=== PATIENT | female | born 1985 | race African-American/Black ===

== ENCOUNTER 2017-01-28 22:47 | Emergency (ER) | payer OTHER ==
[~2017-01-28 22:47] MED LIST: CLA10 PO; ESG PO; FLEXERIL10 MG PO; FLONS; LIO10 PO; MAC100 PO; ULT50 PO; [UNRECOGNIZED DRUG - REMARK]
[2017-01-28 23:35] LABS: BASOPHIL % 1.6 % (0-2); PLATELET COUNT 386 x10^3mcL (130-400); RED CELL DISTRIBUTION WIDTH 11.8 % (11.5-14.5)
[2017-01-28 23:58] LABS: CALCIUM 8.8 mg/dL (8.5-10.1); CARBON DIOXIDE 25.8 mmol/L (21-32); CREATININE SERUM 1.2 mg/dL (0.6-1.0); POTASSIUM SERUM 3.6 mmol/L (3.5-5.1)
[2017-01-29 00:06] LABS: ALBUMIN 3.6 g/dL (3.4-5.0); BILIRUBIN TOTAL 0.4 mg/dL (0.20-1.00); TOTAL PROTEIN, SERUM 7.3 g/dL (6.4-8.2)
[2017-01-29 00:43] VITALS: BP 134/90
== END 2017-01-29 00:43 | disposition home or self-care (01) ==
LOC: ED 22:47
PROVIDERS: Emergency Medicine
DX: J32.9 Chronic sinusitis, unspecified (principal); R10.30 Lower abdominal pain, unspecified; G89.29 Other chronic pain; Z90.710 Acquired absence of both cervix and uterus
CPT/HCPCS: 36415; J2270

== ENCOUNTER 2017-01-30 00:49 | Emergency (ER) | payer OTHER ==
[2017-01-30 03:06] VITALS: BP 118/77
== END 2017-01-30 03:06 | disposition home or self-care (01) ==
LOC: ED 00:49
DX: R51 Headache (principal); J01.90 Acute sinusitis, unspecified; G89.29 Other chronic pain; Z98.51 Tubal ligation status
CPT/HCPCS: J3010

== ENCOUNTER 2017-05-13 13:38 | Emergency (ER) | payer OTHER ==
[~2017-05-13] VITALS: Ht 157.5 cm; Wt 70.1 kg
[2017-05-13 14:28] VITALS: BP 117/83
== END 2017-05-13 14:28 | disposition home or self-care (01) ==
LOC: ED 13:38
DX: K13.0 Diseases of lips (principal)

== ENCOUNTER 2017-05-21 00:25 | Emergency (ER) | payer OTHER ==
[2017-05-21 04:37] VITALS: BP 119/70
== END 2017-05-21 04:37 | disposition home or self-care (01) ==
LOC: ED 00:25
DX: L03.311 Cellulitis of abdominal wall (principal); L03.114 Cellulitis of left upper limb; Z91.010 Allergy to peanuts; Z91.02 Food additives allergy status; Z90.711 Acquired absence of uterus with remaining cervical stump
CPT/HCPCS: J1885; Q0163

== ENCOUNTER 2017-08-16 10:16 | Emergency (ER) | payer OTHER ==
[~2017-08-16] VITALS: Ht 157.5 cm; Wt 6.8 kg
[2017-08-16 10:26] VITALS: Ht 157.5 cm; Wt 6.8 kg
[2017-08-16 13:07] LABS: BASOPHIL % 0.2 % (0-2); PLATELET COUNT 388 x10^3mcL (130-400); RED CELL DISTRIBUTION WIDTH 12.3 % (11.5-14.5)
[2017-08-16 13:11] LABS: CALCIUM 9.1 mg/dL (8.5-10.1); CARBON DIOXIDE 27.5 mmol/L (21-32); CHLORIDE SERUM 104 mmol/L (98-107); CREATININE SERUM 0.9 mg/dL (0.6-1.0); GFR1 > 60 mL/min; GLUCOSE SERUM 82 mg/dL (74-106); POTASSIUM SERUM 3.7 mmol/L (3.5-5.1); SODIUM SERUM 140 mmol/L (136-145)
[2017-08-16 13:16] LABS: ALBUMIN 3.8 g/dL (3.4-5.0); ALKALINE PHOSPHATASE 63 U/L (46-116); ALT/SGPT 16 U/L (14-59); AMYLASE 89 U/L (25-115); AST/SGOT 21 U/L (15-37); BILIRUBIN TOTAL 0.53 mg/dL (0.20-1.00); LIPASE 131 IU/L (73-393); TOTAL PROTEIN, SERUM 7.9 g/dL (6.4-8.2)
[2017-08-16 15:11] VITALS: BP 134/79
== END 2017-08-16 15:11 | disposition home or self-care (01) ==
LOC: ED 10:16
PROVIDERS: Specialist
DX: B34.9 Viral infection, unspecified (principal); G89.29 Other chronic pain; Z91.010 Allergy to peanuts; Z91.02 Food additives allergy status; Z88.8 Allergy status to other drugs, medicaments and biological substances
CPT/HCPCS: 86308; 87804; J1885; J7030; Q0092

== ENCOUNTER 2017-09-14 16:11 | Emergency (ER) | payer OTHER ==
[~2017-09-14] VITALS: Ht 157.5 cm; Wt 72.6 kg
[2017-09-14 16:35] VITALS: Ht 157.5 cm; Wt 72.6 kg
[2017-09-14 17:59] VITALS: BP 128/74
== END 2017-09-14 17:59 | disposition home or self-care (01) ==
LOC: ED 16:11
DX: J02.8 Acute pharyngitis due to other specified organisms (principal); M79.1 Myalgia
CPT/HCPCS: J1885

== ENCOUNTER 2017-11-27 17:42 | Emergency (ER) | payer OTHER ==
[~2017-11-27] VITALS: Ht 157.5 cm; Wt 72.6 kg
[2017-11-27 17:51] VITALS: Ht 157.5 cm; Wt 72.6 kg
[2017-11-27 21:29] VITALS: BP 110/66
[2017-11-28] MEDS ORDERED: XARELTO10 M1 PO (17:12)
[2017-11-28] MEDS ORDERED: BACLOFEN10 MG PO (17:13)
[2017-11-28] MEDS ORDERED: ACETAMINOPHEN &1 TA1 PO (17:15)
[2017-11-28] MEDS ORDERED: IBUPROFEN400 MG PO (17:16)
== END 2017-11-27 21:29 | disposition home or self-care (01) ==
LOC: ED 17:42
DX: S13.9XXA Sprain of joints and ligaments of unspecified parts of neck, initial encounter (principal); I82.409 Acute embolism and thrombosis of unspecified deep veins of unspecified lower extremity; I26.99 Other pulmonary embolism without acute cor pulmonale; Z91.018 Allergy to other foods; Z91.010 Allergy to peanuts; Z90.710 Acquired absence of both cervix and uterus; V49.9XXA Car occupant (driver) (passenger) injured in unspecified traffic accident, initial encounter; Y93.73 Activity, racquet and hand sports; Y92.89 Other specified places as the place of occurrence of the external cause; Y99.8 Other external cause status
CPT/HCPCS: J1885; J2405; J3010

== ENCOUNTER 2017-11-28 14:55 | Emergency (ER) | payer OTHER ==
[~2017-11-28] VITALS: Ht 157.5 cm; Wt 72.6 kg
[2017-11-28 14:59] VITALS: Ht 157.5 cm; Wt 72.6 kg
[2017-11-28 16:35] LABS: CALCIUM 8.7 mg/dL (8.5-10.1); CARBON DIOXIDE 30.3 mmol/L (21-32); CHLORIDE SERUM 103 mmol/L (98-107); CREATININE SERUM 0.9 mg/dL (0.6-1.0); GFR1 > 60 mL/min; GLUCOSE SERUM 125 mg/dL (74-106); POTASSIUM SERUM 3.9 mmol/L (3.5-5.1); SODIUM SERUM 139 mmol/L (136-145)
[2017-11-28] MEDS ORDERED: XARELTO10 M1 PO (17:12)
[2017-11-28] MEDS ORDERED: BACLOFEN10 MG PO (17:13)
[2017-11-28] MEDS ORDERED: ACETAMINOPHEN &1 TA1 PO (17:15)
[2017-11-28] MEDS ORDERED: IBUPROFEN400 MG PO (17:16)
[2017-11-28 17:28] LABS: BASOPHIL % 0.3 % (0-2); PLATELET COUNT 352 x10^3mcL (130-400); RED CELL DISTRIBUTION WIDTH 12.3 % (11.5-14.5)
[2017-11-28 19:15] VITALS: BP 111/80
== END 2017-11-28 19:00 | disposition short-term general hospital (02) ==
LOC: ED 14:55
PROVIDERS: Emergency Medicine
DX: S16.1XXA Strain of muscle, fascia and tendon at neck level, initial encounter (principal); Z91.010 Allergy to peanuts; Z91.018 Allergy to other foods; V43.92XA Unspecified car occupant injured in collision with other type car in traffic accident, initial encounter; Y93.89 Activity, other specified; Y92.89 Other specified places as the place of occurrence of the external cause; Y99.8 Other external cause status
CPT/HCPCS: J2270; J2405; J7030; Q9967

== ENCOUNTER 2018-04-02 08:28 | Emergency (ER) | payer OTHER ==
[~2018-04-02] VITALS: Ht 157.5 cm; Wt 74.4 kg
[~2018-04-02 08:28] MED LIST changes: +ACETAMINOPHEN &1 TA1 PO; +BACLOFEN10 MG PO; +IBUPROFEN400 MG PO; +XARELTO10 M1 PO
[2018-04-02 08:46] VITALS: BP 139/67; Ht 157.5 cm; Wt 74.4 kg
== END 2018-04-02 12:15 | disposition home or self-care (01) ==
LOC: ED 08:28
DX: M54.2 Cervicalgia (principal); M54.9 Dorsalgia, unspecified; M25.512 Pain in left shoulder; M25.569 Pain in unspecified knee; Z86.718 Personal history of other venous thrombosis and embolism; Z86.711 Personal history of pulmonary embolism; Z98.51 Tubal ligation status; Z90.710 Acquired absence of both cervix and uterus; G89.29 Other chronic pain; Z91.010 Allergy to peanuts; Z91.018 Allergy to other foods; Z91.048 Other nonmedicinal substance allergy status

== ENCOUNTER 2018-04-07 09:03 | Emergency (ER) | payer OTHER ==
[~2018-04-07] VITALS: Ht 157.5 cm; Wt 74.4 kg
[2018-04-07 09:09] VITALS: BP 128/98; Ht 157.5 cm; Wt 74.4 kg
== END 2018-04-07 11:42 | disposition home or self-care (01) ==
LOC: ED 09:03
DX: M94.0 Chondrocostal junction syndrome [Tietze] (principal); M54.6 Pain in thoracic spine; G89.29 Other chronic pain; M54.2 Cervicalgia; M54.9 Dorsalgia, unspecified; Z91.010 Allergy to peanuts; Z91.018 Allergy to other foods; Z90.710 Acquired absence of both cervix and uterus; V49.9XXA Car occupant (driver) (passenger) injured in unspecified traffic accident, initial encounter; Y93.73 Activity, racquet and hand sports; Y92.488 Other paved roadways as the place of occurrence of the external cause; Y99.8 Other external cause status

== ENCOUNTER 2018-05-31 01:12 | Emergency (ER) | payer OTHER ==
[~2018-05-31] VITALS: Ht 157.5 cm; Wt 77.6 kg
[2018-05-31 01:18] VITALS: Ht 157.5 cm; Wt 77.6 kg
[2018-05-31 03:53] VITALS: BP 125/89
== END 2018-05-31 03:53 | disposition home or self-care (01) ==
LOC: ED 01:12
DX: M25.512 Pain in left shoulder (principal); R20.2 Paresthesia of skin; Z91.018 Allergy to other foods; Z91.010 Allergy to peanuts; Z90.710 Acquired absence of both cervix and uterus
CPT/HCPCS: J2270; Q0092

== ENCOUNTER 2018-07-04 13:53 | Emergency (ER) | payer OTHER ==
[~2018-07-04] VITALS: Ht 157.5 cm; Wt 77.3 kg
[2018-07-04 14:01] VITALS: BP 116/87
== END 2018-07-04 14:40 | disposition home or self-care (01) ==
LOC: ED 13:53
DX: S90.862A Insect bite (nonvenomous), left foot, initial encounter (principal); L08.9 Local infection of the skin and subcutaneous tissue, unspecified; G89.29 Other chronic pain; M54.2 Cervicalgia; M54.9 Dorsalgia, unspecified; Z88.9 Allergy status to unspecified drugs, medicaments and biological substances; Z91.010 Allergy to peanuts; Z91.018 Allergy to other foods; Z98.51 Tubal ligation status; Z87.442 Personal history of urinary calculi; Z90.711 Acquired absence of uterus with remaining cervical stump; W57.XXXA Bitten or stung by nonvenomous insect and other nonvenomous arthropods, initial encounter; Y93.89 Activity, other specified; Y92.89 Other specified places as the place of occurrence of the external cause; Y99.8 Other external cause status

== ENCOUNTER 2019-08-23 23:11 | Emergency (ER) | payer OTHER ==
[~2019-08-23] VITALS: Ht 157.5 cm; Wt 78.0 kg
[2019-08-23 23:17] VITALS: Ht 157.5 cm; Wt 78.0 kg
[2019-08-24 05:56] VITALS: BP 116/77
== END 2019-08-24 05:56 | disposition home or self-care (01) ==
LOC: ED 23:11
DX: R51 Headache (principal); M54.2 Cervicalgia; M54.9 Dorsalgia, unspecified; G89.29 Other chronic pain; Z91.018 Allergy to other foods; Z87.442 Personal history of urinary calculi; Z90.711 Acquired absence of uterus with remaining cervical stump
CPT/HCPCS: J1100; J1200; J2765; J3030; J3475; J7030

== ENCOUNTER 2019-09-12 16:07 | Emergency (ER) | payer OTHER ==
[~2019-09-12] VITALS: Ht 157.5 cm; Wt 74.8 kg
[2019-09-12 16:28] VITALS: Ht 157.5 cm; Wt 74.8 kg
[2019-09-12 20:32] VITALS: BP 121/85
== END 2019-09-12 20:33 | disposition home or self-care (01) ==
LOC: ED 16:07
DX: S13.4XXA Sprain of ligaments of cervical spine, initial encounter (principal); S43.402A Unspecified sprain of left shoulder joint, initial encounter; S20.212A Contusion of left front wall of thorax, initial encounter; R20.0 Anesthesia of skin; R51 Headache; Z91.018 Allergy to other foods; Z91.010 Allergy to peanuts; Z91.048 Other nonmedicinal substance allergy status; Z98.51 Tubal ligation status; Z87.442 Personal history of urinary calculi; Z90.710 Acquired absence of both cervix and uterus; V48.5XXA Car driver injured in noncollision transport accident in traffic accident, initial encounter; Y93.I9 Activity, other involving external motion; Y92.411 Interstate highway as the place of occurrence of the external cause; Y99.8 Other external cause status

== ENCOUNTER 2019-09-15 08:39 | Emergency (ER) | payer OTHER ==
[~2019-09-15] VITALS: Ht 157.5 cm; Wt 76.0 kg
[2019-09-15 08:51] VITALS: Ht 157.5 cm; Wt 76.0 kg
[2019-09-15 10:30] VITALS: BP 124/81
== END 2019-09-15 10:30 | disposition home or self-care (01) ==
LOC: ED 08:39
DX: M54.2 Cervicalgia (principal); M54.5 Low back pain; M54.6 Pain in thoracic spine; G89.29 Other chronic pain; M25.512 Pain in left shoulder; Z91.018 Allergy to other foods; Z91.010 Allergy to peanuts; Z91.048 Other nonmedicinal substance allergy status; V43.52XA Car driver injured in collision with other type car in traffic accident, initial encounter; Y93.I9 Activity, other involving external motion; Y92.411 Interstate highway as the place of occurrence of the external cause; Y99.8 Other external cause status

== ENCOUNTER 2019-09-18 09:50 | Emergency (ER) | payer OTHER ==
[~2019-09-18] VITALS: Ht 157.5 cm; Wt 74.8 kg
[2019-09-18 09:58] VITALS: Ht 157.5 cm; Wt 74.8 kg
[2019-09-18 11:30] VITALS: BP 125/74
== END 2019-09-18 11:30 | disposition home or self-care (01) ==
LOC: ED 09:50
DX: M54.5 Low back pain (principal); M54.6 Pain in thoracic spine; M54.2 Cervicalgia
CPT/HCPCS: J1885

== ENCOUNTER 2019-11-21 05:37 | Emergency (ER) | payer OTHER ==
[~2019-11-21] VITALS: Ht 157.5 cm; Wt 74.5 kg
[2019-11-21 06:41] LABS: BASOPHIL % 0.3 % (0-2); PLATELET COUNT 380 x10^3mcL (130-400); RED CELL DISTRIBUTION WIDTH 12.9 % (11.5-14.5)
[2019-11-21 07:10] LABS: CALCIUM 9.4 mg/dL (8.5-10.1); CARBON DIOXIDE 26.5 mmol/L (21-32); CHLORIDE SERUM 105 mmol/L (98-107); GFR1 > 60 mL/min; GLUCOSE SERUM 90 mg/dL (74-106); POTASSIUM SERUM 3.7 mmol/L (3.5-5.1); SODIUM SERUM 141 mmol/L (136-145)
[2019-11-21 07:17] LABS: ALBUMIN 3.6 g/dL (3.4-5.0); ALKALINE PHOSPHATASE 62 U/L (46-116); ALT/SGPT 19 U/L (14-59); AST/SGOT 16 U/L (15-37); BILIRUBIN TOTAL 0.7 mg/dL (0.20-1.00); CHOLESTEROL 149 mg/dL (<200); CHOLESTEROL/HDL RATIO 3.2; HDL CHOLESTEROL 47 mg/dL (40-60); LIPASE 150 IU/L (73-393); TOTAL PROTEIN, SERUM 7.6 g/dL (6.4-8.2); TRIGLYCERIDES 84 mg/dL (<150)
[2019-11-21 07:48] LABS: UA SPECIFIC GRAVITY 1.015 (1.005-1.035); microscopic required? YES; urine erythrocyte 1+ (NEGATIVE)
[2019-11-21 08:15] LABS: FREE T4 1.03 ng/dL (0.76-1.46); FREE THYROXINE INDEX 2.9 ug/dL (1.4-4.5); T4(THYROXINE) 8.5 ug/dL (4.7-13.3)
[2019-11-21 08:30] LABS: T3 TOTAL 1.56 ng/mL
[2019-11-21 08:51] VITALS: BP 130/89
== END 2019-11-21 08:51 | disposition home or self-care (01) ==
LOC: ED 05:37
PROVIDERS: Specialist
DX: R07.89 Other chest pain (principal); Z91.010 Allergy to peanuts; Z91.018 Allergy to other foods; Z88.8 Allergy status to other drugs, medicaments and biological substances; Z90.711 Acquired absence of uterus with remaining cervical stump
CPT/HCPCS: 83880; 84439; 87804; J7030; Q0092; Q9967

== ENCOUNTER 2020-04-17 13:42 | Emergency (ER) | payer OTHER ==
[~2020-04-17] VITALS: Ht 165.1 cm; Wt 74.4 kg
[2020-04-17 13:49] VITALS: Ht 165.1 cm; Wt 74.4 kg
[2020-04-17 15:00] VITALS: BP 137/78
== END 2020-04-17 15:00 | disposition home or self-care (01) ==
LOC: ED 13:42
DX: S90.562A Insect bite (nonvenomous), left ankle, initial encounter (principal); Z98.890 Other specified postprocedural states; Z90.711 Acquired absence of uterus with remaining cervical stump; Z88.8 Allergy status to other drugs, medicaments and biological substances; Z91.018 Allergy to other foods; W57.XXXA Bitten or stung by nonvenomous insect and other nonvenomous arthropods, initial encounter; Y93.89 Activity, other specified; Y92.89 Other specified places as the place of occurrence of the external cause; Y99.8 Other external cause status

== ENCOUNTER 2020-05-10 20:35 | Emergency (ER) | payer OTHER ==
[~2020-05-10] VITALS: Ht 157.5 cm; Wt 74.4 kg
[2020-05-10 20:42] VITALS: Ht 157.5 cm; Wt 74.4 kg
[2020-05-10 22:18] VITALS: BP 111/72
== END 2020-05-10 22:18 | disposition home or self-care (01) ==
LOC: ED 20:35
DX: R22.0 Localized swelling, mass and lump, head (principal); Z90.711 Acquired absence of uterus with remaining cervical stump; Z91.010 Allergy to peanuts; Z91.018 Allergy to other foods